=== PATIENT | female | born 1990 | race Native Hawaiian/Other Pacific Islander ===

== ENCOUNTER 2017-06-18 13:12 | Emergency (ER) | payer OTHER ==
[~2017-06-18] VITALS: Ht 167.6 cm; Wt 113.4 kg
[2017-06-18 13:15] VITALS: TEMP 99.1
[2017-06-18 13:56] LABS: PLATELET COUNT 309 K/uL (152-353)
[2017-06-18 14:16] LABS: POTASSIUM 3.4 mmol/L (3.6-5.2); SODIUM 136 mmol/L (136-145)
[2017-06-18 14:47] VITALS: BP 128/49
== END 2017-06-18 15:00 | disposition home or self-care (01) ==
LOC: ED 13:12
DX: K52.9 Noninfective gastroenteritis and colitis, unspecified (principal)
CPT/HCPCS: 36415; 80053; 81000; 85027; 86318; 96365; 99284

== ENCOUNTER 2017-12-16 15:48 | Emergency (ER) | payer OTHER ==
[~2017-12-16] VITALS: Ht 170.2 cm; Wt 104.3 kg
[2017-12-16 19:12] VITALS: BP 136/73; TEMP 98.3
== END 2017-12-16 19:13 | disposition home or self-care (01) ==
LOC: ED 15:48
DX: R11.2 Nausea with vomiting, unspecified (principal); R19.7 Diarrhea, unspecified
CPT/HCPCS: 87804; 99283; J2550

== ENCOUNTER 2018-10-02 00:19 | Emergency (ER) | payer OTHER ==
[~2018-10-02] VITALS: Ht 170.2 cm; Wt 108.9 kg
[2018-10-02 01:45] LABS: PLATELET COUNT 322 K/uL (152-353)
[2018-10-02 04:33] VITALS: BP 130/80; TEMP 98
== END 2018-10-02 04:35 | disposition home or self-care (01) ==
LOC: ED 00:19
PROVIDERS: Emergency Medicine
DX: N20.1 Calculus of ureter (principal)
CPT/HCPCS: 80053; 81000; 81025; 82150; 83690; 85027; 96365; 96374; 99284; J1885

== ENCOUNTER 2019-02-20 10:03 | Emergency (ER) | payer OTHER ==
[~2019-02-20] VITALS: Ht 170.2 cm; Wt 95.3 kg
[2019-02-20 10:58] LABS: POTASSIUM 3.6 mmol/L (3.6-5.2)
[2019-02-20 11:07] LABS: PLATELET COUNT 314 K/uL (152-353)
[2019-02-20 11:54] VITALS: BP 124/68; TEMP 97.5
== END 2019-02-20 11:54 | disposition home or self-care (01) ==
LOC: ED 10:03
PROVIDERS: Emergency Medicine
DX: K52.9 Noninfective gastroenteritis and colitis, unspecified (principal); Z33.1 Pregnant state, incidental
CPT/HCPCS: 36415; 80053; 81000; 81025; 83690; 83735; 85027; 99283

== ENCOUNTER 2019-03-26 23:51 | Emergency (ER) | payer OTHER ==
[~2019-03-26] VITALS: Ht 170.2 cm; Wt 114.3 kg
[2019-03-27 00:45] VITALS: BP 142/84; TEMP 98.8
== END 2019-03-27 00:45 | disposition home or self-care (01) ==
LOC: ED 23:51
DX: O20.0 Threatened abortion (principal); Z3A.09 9 weeks gestation of pregnancy
CPT/HCPCS: 99284

== ENCOUNTER 2019-04-02 12:28 | Outpatient (CLI) | payer OTHER | END 2019-04-02 23:11 | disposition home or self-care (01) | LOC: LABW 12:28 | DX: O36.80X9 Pregnancy with inconclusive fetal viability, other fetus (principal) | CPT/HCPCS: 84702 ==

== ENCOUNTER 2019-04-10 08:58 | Outpatient (CLI) | payer OTHER | END 2019-04-10 19:35 | disposition home or self-care (01) | LOC: LAB 08:58 | DX: O03.9 Complete or unspecified spontaneous abortion without complication (principal) | CPT/HCPCS: 84702 ==

== ENCOUNTER 2019-12-08 11:20 | Emergency (ER) | payer OTHER ==
[~2019-12-08] VITALS: Ht 170.2 cm; Wt 114.3 kg
[2019-12-08 11:34] VITALS: TEMP 97.5
[2019-12-08 12:20] LABS: PLATELET COUNT 264 K/uL (152-353)
[2019-12-08 12:24] LABS: POTASSIUM 4.1 mmol/L (3.6-5.2)
[2019-12-08 13:22] VITALS: BP 126/82
== END 2019-12-08 13:26 | disposition home or self-care (01) ==
LOC: ED 11:20
PROVIDERS: Family Medicine
DX: K57.90 Diverticulosis of intestine, part unspecified, without perforation or abscess without bleeding (principal); R10.32 Left lower quadrant pain; R11.0 Nausea
CPT/HCPCS: 80053; 81000; 81025; 85027; 96372; 99283; J1885

== ENCOUNTER 2020-05-19 17:16 | Emergency (ER) | payer OTHER ==
[~2020-05-19] VITALS: Ht 170.2 cm; Wt 127.0 kg
[2020-05-19 18:03] LABS: PLATELET COUNT 260 K/uL (152-353)
[2020-05-19 18:14] LABS: POTASSIUM 3.7 mmol/L (3.6-5.2)
[2020-05-19 19:30] VITALS: BP 145/78; TEMP 98.5
== END 2020-05-19 19:30 | disposition home health service (06) ==
LOC: ED 17:16
PROVIDERS: Hospitalist
DX: K52.89 Other specified noninfective gastroenteritis and colitis (principal); R11.2 Nausea with vomiting, unspecified; R19.7 Diarrhea, unspecified
CPT/HCPCS: 80053; 81000; 81025; 82150; 83690; 85027; 96374; 99284; J1885; J2405